=== PATIENT | male | born 1930 | race Caucasian/White ===

== ENCOUNTER 2016-09-01 21:57 | Emergency (ER) | payer MEDICARE ==
--- NOTE | 2016-09-01 22:17 | EDPRACDOC ---
- General Information Stated Complaint: CHEST PAIN/WEAKNESS Time Seen by Provider: 09/01/16 22:11 Information Source: Patient Mode of Arrival: Car Home Medications: Home Medications Aspirin [Aspirin EC] 81 mg PO BID 06/28/13 Docosahexanoic Acid/Epa [Fish Oil Concentrate Softgel] 1 each PO BID 06/28/13 Multivitamin [Multiple Vitamins] 1 each PO DAILY 06/28/13 Pravastatin [Pravachol] 80 mg PO DAILY 06/28/13 Beta-Carotene(A) W-C & E [E-400 C-500 & Beta Carotene] 1 each PO 03/16/15 Carvedilol [Coreg] 6.25 mg PO BID 03/16/15 Allergies/Adverse Reactions: Allergies Allergy/AdvReac Type Severity Reaction Status Date / Time No Known Drug Allergies Allergy Unknown Unknown Verified 09/01/16 22:17 - History of Present Illness HPI: PT CALLED SON, WORRIED HE WAS HAVING A HEART ATTACK. HAD FIRST SPELL ABOUT 1800 , LIKE HIS HEART WAS GOING TO GIVE OUT, FELT PRESSURE, FELT LIKE PASSING OUT. 2 SPELLS TOTAL, THE SECOND ONE 2130. LASTED 3-4 SECONDS. PT FEELS FINE NOW. SON REPORTS HE WAS VERY PALE AT ABOUT 2130. MILD GA MARCH 2015 WITH STENT. 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 Denies: Hypertension Respiratory History: Reports: Emphysema. Denies: Asthma, COPD GI/ History: Denies: Gastroesophageal Reflux Psychological History: Denies: Substance Use Disorder Systemic History: Denies: Cancer, Diabetes, Hypothyroidism Surgical History: Reports: CABG (2001), Cardiac Catheterization - Family Medical History Reports: Hypertension, Cardiac Disorders. Denies: Diabetes, Cancer, Stroke - Social Medical History Smoking Status: Former smoker Social History: Denies: Substance Use Disorder EDM Review of Systems - Review of Systems ROS Negative Except as Marked: Yes All systems reviewed and were negative except as marked Constitutional: No Symptoms Reported Eyes: No Symptoms Reported Throat: No Symptoms Reported Respiratory: No Symptoms Reported Cardiovascular: Chest Pain Gastrointestinal: No Symptoms Reported Genitourinary: No Symptoms Reported Musculoskeletal: No Symptoms Reported Integumentary: No Symptoms Reported Hematologic: No Symptoms Reported Endocrine: No Symptoms Reported - Physical Exam Constitutional: Alert (Awake), No apparent distress Oriented to: Time, Person, Place Last recorded Vital Signs: Oxygen Pulse Oxygen Saturation O2 Device Oxygen Flow Rate Fraction of Inspired Oxygen ( FIO2) - HEENT Head: Normal ( normocephalic) Eye Exam: Normal (PERRL, EOMI, Sclera white) Oropharynx: Normal (Pharynx:Moist without exudate,Gums-no swelling) Nose: No Symptoms Reported (septum midline) Neck: Normal (FROM, trachea at midline) - Respiratory/Cardiovascular Respiratory: Normal - CTA (BBS clear to auscultation without adventitious sounds ) Cardiovascular: Normal (RRR without murmur, gallop or rub) - GI Auscultation: Normal (NABS) Palpation: Normal (Soft,No rebound or guarding, non distended) Tenderness: Non tender Curiel's Sign: Negative - Musculoskeletal Back: Normal (Non-Tender) Extremities: Normal (Normal tone, Pulses 2+ No cyanosis or edema, FROM) - Integumentary Skin: Normal, Warm, Dry Lymphatics: Normal (no adenopathy) - Neurologic Memory Impaired: Normal Motor Function: Normal (Normal tone, Pulses 2+ No cyanosis or edema, FROM) Cranial Nerve: Normal (CN II-X11 intact sensation, strength 5/5) Cerebellar: Normal Mood Description: Normal Perception: Normal - Action ASA given in the ED: No Aspirin therapy held due to: Warfarin Home Med - Results 09/01/16 22:41 09/01/16 22:41 - EKG EKG #1 EKG Time: 22:07 -: Yes EKG interpreted by me Rate: bpm: 80 [place]: Normal Rhythm: NSR Block: LBBB Comments: ABNORMAL EKG Decision Time to Discharge: 02:11 - Departure Yes I personally saw and evaluated the patient. Disposition: Home Condition: Stable Final Diagnosis: Atypical chest pain, Attacks of weakness Instructions: Chest Pain (ED) Education/Counseling Given To: Patient, Family Member Education/Counseling Given Regarding: Diagnosis Referrals: Valdemar Skinner MD [Staff Physician] - 1-2 days Additional Instructions: CT OF CHEST TO BE ORDERED BY YOUR DOCTOR FOR RIGHT LUNG NODULE. - Physician Consulted Cardiology Time Called: 00:07 Provider Called: Valdemar Skinner Time [employer] Returned Call: 00:07 Consult Reason: OKAY WITH NEGATIVE SECOND TROP. CLOSE F/U WITH CARDIO IN OFFICE.
[2016-09-01 22:24] VITALS: TEMP 98.3; BMI 25.2
[2016-09-01 22:52] LABS: AUTOMATED LYMPH 14.5 % (17-44); AUTOMATED MONOCYTE 12.4 % (3-10); AUTOMATED NEUTROPHIL 64.1 % (45-76); MPV 8.9 fL (7.4-10.4)
[2016-09-01 23:00] LABS: BLOOD UREA NITROGEN 33 MG/DL (9-20); CALC CORRECTED 8.5 MG/DL (8.4-10.2); CALCIUM 8.2 MG/DL (8.4-10.2); CALCULATED OSMOLALITY 284 MOs/Kg (270-290); CHLORIDE 108 mEq/L (98-107); GLUCOSE 141 MG/DL (70-99); SODIUM LEVEL 143 mEq/L (137-146); TOTAL PROTEIN 6.6 G/DL (6.3-8.2)
[2016-09-01 23:20] LABS: PARTIAL THROMB. TIME 30.2 SEC (22-35); PT-INR 3.3
--- NOTE | 2016-09-01 23:52 | DIRPT ---
CLINICAL DATA: LEFT chest pain, concern for heart attack. EXAM: PORTABLE CHEST 1 VIEW COMPARISON: 02/03/2016, CT 08/2013 FINDINGS: Left-sided pacemaker overlies stable cardiac silhouette. Midline sternotomy noted. No effusion, infiltrate, pneumothorax. Chronic bronchitic markings centrally. There is a nodule in the RIGHT upper lobe again demonstrated measuring 18 mm. IMPRESSION: 1. No acute cardiopulmonary process. 2. Nodular density in the RIGHT upper lobe appears more prominent the comparison CT from 2013. Recommend nonemergent noncontrast CT thorax for comparison. Electronically Signed By: Jeff Dias M.D. On: 09/01/2016 23:49
[2016-09-02 00:48] LABS: LEUKOCYTES/URINE TRACE (NEGATIVE); NITRITE/URINE NEG (NEGATIVE); URINE OCCULT BLOOD NEG (NEG/TRACE)
[2016-09-02 02:22] VITALS: BP 136/65; PULSE 75
== END 2016-09-02 02:21 | disposition home or self-care (01) ==
LOC: ED 21:57
DX: R07.89 Other chest pain (principal); R53.1 Weakness; I48.0 Paroxysmal atrial fibrillation; J43.9 Emphysema, unspecified; I25.2 Old myocardial infarction; Z95.0 Presence of cardiac pacemaker; Z95.1 Presence of aortocoronary bypass graft; Z79.82 Long term (current) use of aspirin; Z79.899 Other long term (current) drug therapy
CPT/HCPCS: 36415; 71010; 80053; 81001; 83880; 84484; 85025; 85610; 85730; 93005; 99285